=== PATIENT | male | born 1980 | race Caucasian/White ===

== ENCOUNTER 2017-01-18 04:53 | Emergency (ER) | payer BC ==
[~2017-01-18] VITALS: Ht 170.2 cm; Wt 108.9 kg
[~2017-01-18 04:53] MED LIST: NORCO 5-325 TA1 EACH PO
[2017-01-18] MEDS ORDERED: DOXYCYCLINE HY100 MG PO (05:28)
== END 2017-01-18 05:38 | disposition home or self-care (01) ==
LOC: ED 04:53
PROC: 0HQFXZZ Repair Right Hand Skin, External Approach (ICD-10-PCS; principal; 2017-01-18)
DX: S61.011A Laceration without foreign body of right thumb without damage to nail, initial encounter (principal); F17.200 Nicotine dependence, unspecified, uncomplicated; W26.0XXA Contact with knife, initial encounter
CPT/HCPCS: 12002; 99283

== ENCOUNTER 2018-08-24 13:34 | Emergency (ER) | payer BC ==
[~2018-08-24] VITALS: Ht 170.2 cm; Wt 108.9 kg
[~2018-08-24 13:34] MED LIST changes: +DOXYCYCLINE HY100 MG PO
--- OUTSIDE RECORDS SUMMARY | 2018-08-24 13:38 | XMS ---
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 Micheal has no Care Guidelines for this patient. Ronny VISIT COUNT (12 MO.) 1 ROBIN Rausch TOTAL 1 NOTE: Visits indicate total known visits. ED/C VISIT TRACKING (12 MO.) 08/24/2018 13:35 ROBIN Chaudhry OR TYPE: Emergency COMPLAINT: - RIGHT SIDE PAIN/INJURY INPATIENT VISIT TRACKING (12 MO.) No inpatient visits to display in this time frame [id number]
== END 2018-08-24 16:28 | disposition home or self-care (01) ==
LOC: ED 13:34
DX: S20.211A Contusion of right front wall of thorax, initial encounter (principal); F17.200 Nicotine dependence, unspecified, uncomplicated; Y04.0XXA Assault by unarmed brawl or fight, initial encounter
CPT/HCPCS: 71046; 99284-25; 99406